=== PATIENT | female | born 1975 | race Caucasian/White ===

== ENCOUNTER 2023-11-23 10:36 | Emergency (ER) | payer OTHER, SELFPAY ==
[2023-11-23 10:37] VITALS: BP 183/103; PULSE 69; RESP 17; TEMP 36.8; O2SAT 98; BMI 42.5
--- NOTE | 2023-11-23 10:42 | XR_ITS ---
WS: [id number] Right shoulder, 3 views, 11/23/2023 Clinical Data: injury Comparison: None. Findings: No fractures or dislocations are seen. The AC joint is normal. The adjacent right clavicle, right sca pula and ribs are normal. The soft tissues are unremarkable. XR/XR shoulder RT min 2V* [id number] Impression: Negative right shoulder.
--- NOTE | 2023-11-23 11:06 | XR_ITS ---
WS: [id number] Portable AP upright chest, 11/23/2023 Clinical Data: pain Comparison: None. Findings: No nodules, masses or effusions are seen. The heart is normal. The pulmonary vascularity is not increased. No pneumonia or pneumothorax is seen. XR/XR chest 1V portable [id number] Impression: Negative chest.
--- NOTE | 2023-11-23 11:06 | ECG_ITS ---
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 Measurements Intervals [place] Rate: 64 P: 44 PA: 216 QRS: 11 QRSD: 100 T: 32 QT: 382 QTc: 397 Interpretive Statements SINUS RHYTHM WITH FIRST DEGREE AV BLOCK No previous ECG available for comparison Electronically Signed On 11-23-2023 16:35:16 CDT by Mil Siddiqui M.D. [id number]
--- NOTE | 2023-11-23 11:10 | ED_ITS ---
HPI - Extremity Problem General: Chief complaint: Extremity Injury, Upper Stated complaint: right shoulder pain Time Seen by Provider: 11/23/23 10:55 Source: patient Mode of arrival: ambulatory Limitations: no limitations History of Present Illness: 48-year-old female states that she has b een having right shoulder pain for the last 2 weeks. She states she feels like it is a muscle pain that is worse with movement and has some shooting pain down her arm. Denies any specific injury states she has seen her PCP she had done steroids and anti-inflammatories and has had no relief she rates her pain a 4 out of 10 currently she denies any neck pain denies any chest pain Associated symptoms: Deny chest pain, fever(s) or rash Related Data Previous Rx's Medication Instructions Recorded gabapentin 300 mg capsule 300 mg PO BID #30 caps 11/23/23 naproxen 500 mg tablet (Naprosyn) 500 mg PO BID PRN pain #20 tabs 11/23/23 Allergies Allergy/AdvReac Type Severity Reaction Status Date / Time amlodipine Allergy ALGY-Rash Verified 11/23/23 10:46 carbamazepine [From Tegretol] Allergy ALGY-Bliste Verified 11/23/23 10:46 r nifedipine Allergy ALGY-Rash Verified 11/23/23 10:46 Review of Systems Const: Denies: fever(s), chills, body aches or change in appetite ENMT: Denies: throat pain or dental pain Card: Denies: chest pain Resp: Denies: dyspnea GI: Denies: abdominal pain, nausea, vomiting or diarrhea Musc: Reports: extremity pain; Denies: neck pain or back pain Skin/Breast: Denies: rash Neuro: Denies: headache(s) Physical Exam Const: COMMON NORMALS: no acute distress, patient oriented x3 and healthy appearing HENMT: COMMON NORMALS: normocephalic and atraumatic HEAD & SCALP: normocephalic and atraumatic Neck/C-Spine: COMMON NORMALS: full ROM and supple Chest: COMMONS NORMALS: normal inspection of the chest Resp: COMMON NORMALS: normal respiratory effort, No retractions, No use of accessory muscles and clear to auscultation bilaterally AUSCULTATION: clear to auscultation bilaterally Cardio: COMMON NORMALS: regular rate, regular rhythm and No murmurs present (Cardio) RATE: regular rate RHYTHM: regular rhythm Extremity: COMMON NORMALS: normal to inspection and full ROM Neuro: COMMON NORMALS: patient oriented x3, moves all extremities and no focal motor deficits Psych: COMMON NORMALS: mental status grossly normal, Normal thought process present and cooperative THOUGHT PROCESS: Normal thought process present Skin: COMMON NORMALS: no rashes or lesions noted and no wounds GENERAL SKIN EXAM: no rashes or lesions noted Course Vital Signs: Vital signs: Vital Signs Temperature 98.2 F 11/23/23 10:37 Pulse Rate 67 11/23/23 11:26 Respiratory Rate 18 11/23/23 11:26 Blood Pressure 151/106 11/23/23 11:26 Pulse Oximetry 95 11/23/23 11:26 Oxygen Delivery Me thod Room Air 11/23/23 11:26 MDM - Extremity (Nontraumatic) Medical Decision Making Patient presents here with right shoulder pain exam here is benign x-rays are normal we will place her on gabapentin she is to follow-up with orthopedics return if worsening she understands agrees to plan Medical Records I reviewed the patient's medical records. Lab Data Radiology Impressions Shoulder X-Ray 11/23/23 10:42 Impression: Negative right shoulder. Chest X-Ray 11/23/23 11:06 Impression: Negative chest. All radiology interpretation(s) finalized by discharge EKG Data EKG 1: I personally reviewed and interpreted this EKG as follows: EKG interpretation date: 11/23/23 EKG interpretation time: 11:33 Interpretation: nsr hr [address] elevation qrs 100 qtc 392 Discharge Plan Discharge Patient Disposition: Home Clinical Impression: Pain in right shoulder Condition: Stable Prescriptions: New Naprosyn 500 mg tablet 500 mg PO BID PRN (Reason: pain) Qty: 20 0RF gabapentin 300 mg capsule 300 mg PO BID Qty: 30 0RF Discharge Orders: Discharge ED (Routine); Ordered 11/23/23 Ordered By: Mayte Hunter Referrals: Alie Madera MD [Physician] - 4-7 days Ned Mary DO [Primary Care Provider] - Discharge Diet: Advance as tolerated Discharge Activity: Resume usual activity Patient Instructions: Shoulder Pain (ED) Coding Level of Care Code ED Video Production Specialist for Chg Helen
[2023-11-23 11:26] VITALS: BP 151/106; PULSE 67; RESP 18; O2SAT 95
[2023-11-23] MEDS: dexamethasone 10 mg/mL INJ IM (11:27)
[2023-11-23] MEDS: ketorolac 60 mg/2 mL INJ IM (11:28)
[2023-11-23 12:15] VITALS: BP 147/94; PULSE 63; O2SAT 97
--- NOTE | 2023-11-24 10:00 | PC.SOCIAL ---
Orthopedics Referral Message sent to clinic for f/u appt at this time.
== END 2023-11-23 12:16 | disposition home or self-care (01) ==
PROVIDERS: Emergency Provider Emergency Medicine; PCP Family Medicine
DX: M25.511 Pain in right shoulder (principal)
CPT/HCPCS: 71045; 73030; 93005; 96372; 99284; J1100; J1885

== ENCOUNTER → 2023-11-29 15:26 | Outpatient (BNVA) | payer OTHER, SELFPAY | PROVIDERS: PCP Family Medicine; Visit Provider Nurse Practitioner | DX: M25.511 Pain in right shoulder (principal) | CPT/HCPCS: 73030 ==

== ENCOUNTER → 2023-12-05 15:54 | Outpatient (BNVA) | payer OTHER, SELFPAY | PROVIDERS: PCP Family Medicine; Visit Provider Orthopaedic Surgery | DX: M54.12 Radiculopathy, cervical region (principal) | CPT/HCPCS: 72050 ==

== ENCOUNTER 2024-04-10 12:47 | Emergency (ER) | payer BC, SELFPAY ==
[2024-04-10] VITALS (11 sets, daily range): BP systolic 144–223; BP diastolic 82–129; PULSE 73–96; RESP 16–18; TEMP 36.9; O2SAT 98–100; BMI 42.5
--- NOTE | 2024-04-10 13:07 | ECG_ITS ---
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 Measurements Intervals [place] Rate: 67 P: 43 VT: 242 QRS: 41 QRSD: 90 T: 42 QT: 385 QTc: 407 Interpretive Statements SINUS RHYTHM WITH FIRST DEGREE AV BLOCK Compared to ECG 11/23/2023 11:33:43 No significant changes Electronically Signed On 04-10-2024 17:56:19 REGISTERED NURSE FETAL by Maureen Cali M.D. [id number] [id number]
--- NOTE | 2024-04-10 14:01 | XR_ITS ---
WS: [id number] XR chest 1V portable [id number] REASON FOR EXAM: Dyspnea FINDINGS: Compensating for respiratory motion artifact the chest appears stable compared to 11/01/2023. The thoracic aorta is normal. The heart is at the upper limits of normal in size. No acute pulmonary parenchymal or pleural abnormality is identified. Mild degenerative spondylosis in the thoracic spine. XR/XR chest 1V portable [id number] IMPRESSION: Stable chest without acute abnormality.
[2024-04-10 14:33] LABS: Basophils % 0.3 %; Eosinophils # 0.1 10^3/uL (0.0-0.8); Eosinophils % 0.9 %; Hematocrit 37.4 % (36-47); Lymphocytes # 1.9 10^3/uL (0.8-4.8); Lymphocytes % 24.9 %; Mean Corpuscular HGB Conc 32.1 g/dL (30-55); Mean Corpuscular Hemoglobin 29.1 pg (27-33); Mean Corpuscular Volume 90.6 fl (85-98); Mean Platelet Volume 9.9 fL (7.4-10.4); Monocytes # 0.7 10^3/uL (0.2-0.9); Monocytes % 8.3 %; Neutrophils # 5.09 10^3/uL (1.8-7.7); Neutrophils % 65.2 %; Nucleated Red Blood Cells % 0 %; Platelet Count 271 10^3/cmm (157-399); Red Blood Count 4.13 10^6/uL (3.85-5.65); Red Cell Distribution Width 12.4 % (12.1-15.1)
[2024-04-10 14:49] LABS: Alanine Aminotransferase 14 U/L (0-33); Albumin Level 3.7 g/dL (3.5-5.2); Alkaline Phosphatase 64 U/L (35-105); Anion Gap 14.8 (5-19); Aspartate Amino Transferase 18 U/L (0-32); Blood Urea Nitrogen 10 mg/dL (6-20); Calcium 9.4 mg/dL (8.5-10.5); Carbon Dioxide 25 mmol/L (22-29); Chloride 102 mmol/L (98-107); Creatinine Clr Calc Pharmacy 90.4909; Globulin 3.5 g/dL (1.3-4.6); Glomerular Filtration Rate 66.8 mL/min (90-130); Glucose 106 mg/dL (65-115); Osmolality Calculated 283 mOsm/kg (285-295); Potassium 4.8 mmol/L (3.5-5.1); Sodium 137 mmol/L (136-145); Total Bilirubin 0.2 mg/dL (0.15-1.2); Total Protein 7.2 g/dL (6.6-8.7)
--- NOTE | 2024-04-10 14:56 | ED_ITS ---
Documented by User: Shilo Robertson, DO 04/11/24 05:40 HPI - SOB/Dyspnea 2 General: Chief Complaint: Shortness of Breath/Dyspnea Stated Complaint: SOB/wheezing Time Seen by Provider: 04/10/24 14:30 History of Present Illness: HPI Narrative: 41-year-old female presents emergency ro om complaining of shortness of breath for the last several days. She did have the swelling of the lower extremities. She also has a history of elevated blood pressure. She takes medicines regularly she has not had any change in doses or missed any doses recently she does vape but does not smoke. Patient has phentermine on her list but she has not taken for several months. She denies use of any myly-kjy-uuaarej decongestants or nasal sprays. Does not use large amounts of caffeine. Associated symptoms: Deny abdominal pain, chest pain or fever(s) Related Data Home Medications ?Medication ?Instructions ?Recorded ?Confirmed metoprolol succinate 100 mg 100 mg PO DAILY 11/29/23 0 04/10/24 tablet,extended release 24 hr tizanidine 4 mg capsule 4 mg PO TID PRN muscle spasm s 11/29/23 04/10/24 losartan 100 mg tablet 100 mg PO DAILY 12/05/2302/20 gabapentin 100 mg capsule 200 mg PO BEDTIME 04/10/24 0 04/10/24 hydrocodone 7.5 mg-acetaminophen 1 tab PO QID PRN Pain 04/10/24 04/10/24 325 mg tablet Previous Rx's ?Medication ?Instructions ?Recorded hydralazine 25 mg tablet 25 mg PO TID #90 tabs hydrochlorothiazide 25 mg tablet 25 mg PO DAILY #30 ta bs 04/10/24 levalbuterol tartrate 45 2 inh inhalation Q4H #15 gra ms 04/10/24 mcg/actuation aerosol inhaler (Xopenex HFA) Allergies Allergy/AdvReac Type Severity Reaction Status Date / Time amlodipine Allergy ALGY-Rash Verified 04/10/24 20:29 carbamazepine (From Tegretol) Allergy ALGY-Bliste Verified 04/10/24 20:29 r nifedipine Allergy ALGY-Rash Verified 04/10/24 20:29 Review of Systems 2 Const: Denies: fever(s) or chills Eyes: Reports: blurry vision and photophobia Card: Denies: chest pain Resp: Denies: dyspnea GI: Denies: abdominal pain : Denies: dysuria, urinary frequency or urinary urgency Musc: Denies: neck pain or back pain Skin/Breast: Denies: rash Neuro: Reports: headache(s) PFSH ED 2 PFSH: Medical History Right cervical radiculopathy Social History Smoking and tobacco/nicotine status: former use of tobacco/nicotine Physical Exam 2 Const: GENERAL APPEARANCE: cooperative ORIENTATION/CONSCIOUSNESS: Yes awake, Yes oriented to person, Yes oriented to place and Yes oriented to time HENMT: COMMON NORMALS: normocephalic, atraumatic and hearing grossly normal bilaterally HEAD & SCALP: normocephalic and atraumatic Resp: COMMON NORMALS: normal respiratory effort, No retractions, No use of accessory muscles and clear to auscultation bilaterally AUSCULTATION: clear to auscultation bilaterally Cardio: COMMON NORMALS: regular rate, regular rhythm and No murmurs present (Cardio) RATE: regular rate RHYTHM: regular rhythm GI: COMMON NORMALS: Soft to palpation and No hepatosplenomegaly present A USCULTATION: Yes normoactive bowel sounds PALPATION: Yes Soft to palpation, No Tenderness to palpation present (GI), No Guarding due to palpation present (GI) and Yes No hepatosplenomegaly present Extremity: COMMON NORMALS: normal to inspection, capillary refill normal, no clubbing, cyanosis or edema, no calf tenderness and no pedal edema Neuro: SENSORIUM/ORIENTATION: Yes oriented to person, Yes oriented to place and Yes oriented to time Skin: COMMON NORMALS: no rashes or lesions noted GENERAL SKIN EXAM: no rashes or lesions noted Course 2 Vital Signs: Vital signs: Vital Signs Temperature 98.4 F 04/10/24 12:54 Pulse Rate 81 04/10/24 19:02 Respiratory Rate 16 04/10/24 19:02 Blood Pressure 157/82 04/10/24 19:02 Pulse Oximetry 100 04/10/24 19:02 Oxygen Delivery Me thod Room Air 04/10/24 16:34 MDM - SOB/Dyspnea Medical Decision Making Patient presents complaining of shortness of breath chest x-ray was normal subsequently some vision changes elevated blood pressure CT of her head was normal. CTA of the chest that not show any PEs there are very small pleural effusions. Discussed this with her and encouraged her to follow-up with her primary care doctor regarding this. She was given multiple blood pressure medications her blood pressure was rather labile eventually we are able to get her blood pressure controlled we are about to discharge her and it went up again she was redosed. Care turned over to Dr. Stanton if blood pressure does not improve she will need to be admitted that she could go home with the hydralazine hydrochlorothiazide along with her metoprolol. Additionally she had good relief of her shortness of breath with Xopenex nebulizer she was given a Xopenex inhaler to use as needed. Care signed out to Dr. Stanton at change of shift. See final notes for diagnosis and disposition. Patient care transitioned me at shift change. Awaiting blood pressure improvement. It did improve patient was discharged home. Medical Records I reviewed the patient's medical records. Lab Data I reviewed the patient's lab results. 04/10/24 14:13 04/10/24 14:13 Labs/Radiology: Radiology Impressions Chest X-Ray 04/10/24 14:01 IMPRESSION: Stable chest without acute abnormality. Head CT 04/10/24 15:06 IMPRESSION: No acute intracranial abnormality. Chest CTA 04/10/24 17:11 IMPRESSION: Small volume bilateral pleural effusions. Laboratory Results WBC 7.80 10^3/uL (3.29-11.43) 04/10/24 14:13 RBC 4.13 10^6/uL (3.85-5.65) 04/10/24 14:13 Hgb 12.00 g/dL (11.27-16.99) 04/10/24 14:13 Hct 37.4 % (36-47) 04/10/24 14:13 MCV 90.6 fl (85-98) 04/10/24 14:13 MCH 29.1 pg (27-33) 04/10/24 14:13 MCHC 32.1 g/dL (30-55) 04/10/24 14:13 RDW 12.4 % (12.1-15.1) 04/10/24 14:13 Plt Count 271 10^3/cmm (157-399) 04/10/24 14:13 MPV 9.9 fL (7.4-10.4) 04/10/24 14:13 Neut % (Auto) 65.2 % 04/10/24 14:13 Lymph % (Auto) 24.9 % 04/10/24 14:13 Baxter % (Auto) 8.3 % 04/10/24 14:13 Eos % (Auto) 0.9 % 04/10/24 14:13 Baso % (Auto) 0.3 % 04/10/24 14:13 Neut # (Auto) 5.09 10^3/uL (1.8-7.7) 04/10/24 14:13 Lymph # (Auto) 1.9 10^3/uL (0.8-4.8) 04/10/24 14:13 [place] # (Auto) 0.7 10^3/uL (0.2-0.9) 04/10/24 14:13 Eos # (Auto) 0.1 10^3/uL (0.0-0.8) 04/10/24 14:13 Baso # (Auto) 0.0 10^3/uL (0.0-0.1) 04/10/24 14:13 Nucleated RBC % (auto) 0 % 04/10/24 14:13 Nucleated RBCs # 0.0 /100WBC 04/10/24 14:13 D-Dimer 0.98 ug/mLFEU (0-0.59) H 04/10/24 14:13 Sodium 137 mmol/L (136-145) 04/10/24 14:13 Potassium 4.8 mmol/L (3.5-5.1) 04/10/24 14:13 Chloride 102 mmol/L (98-107) 04/10/24 14:13 Carbon Dioxide 25 mmol/L (22-29) 04/10/24 14:13 Anion Gap 14.8 (5-19) 04/10/24 14:13 BUN 10 mg/dL (6-20) 04/10/24 14:13 Creatinine 0.9 mg/dL (0.5-0.9) 04/10/24 14:13 GFR Calculation 66.8 mL/min (90-130) L 04/10/24 14:13 Glucose 106 mg/dL (65-115) 04/10/24 14:13 Calculated Osmolality 283 mOsm/kg (285-295) L 04/10/24 14:13 Calcium 9.4 mg/dL (8.5-10.5) 04/10/24 14:13 Total Bilirubin 0.2 mg/dL (0.15-1.2) 04/10/24 14:13 AST 18 U/L (0-32) 04/10/24 14:13 ALT 14 U/L (0-33) 04/10/24 14:13 Alkaline Phosphatase 64 U/L (35-105) 04/10/24 14:13 Total Protein 7.2 g/dL (6.6-8.7) 04/10/24 14:13 Albumin 3.7 g/dL (3.5-5.2) 04/10/24 14:13 Globulin 3.5 g/dL (1.3-4.6) 04/10/24 14:13 Coronavirus (PCR) Negative (Negative) 04/10/24 14:45 Influenza A (PCR) Negative (Negative) 04/10/24 14:45 Influenza Type B (PCR) Negative (Negative) 04/10/24 14:45 RSV (PCR) Negative (Negative) 04/10/24 14:45 Discharge Plan Discharge Patient Disposition: Home Clinical Impression: Hypertension Condition: Stable Prescriptions: New hydrochlorothiazide 25 mg tablet 25 mg PO DAILY Qty: 30 0RF hydralazine 25 mg tablet 25 mg PO TID Qty: 90 0RF levalbuterol tartrate [Xopenex HFA] 45 mcg/actuation HFA aerosol inhaler 2 inh inhalation Q4H Qty: 15 0RF No Action metoprolol succinate 100 mg tablet extended release 24 hr 100 mg PO DAILY tizanidine 4 mg capsule 4 mg PO TID PRN (Reason: muscle spasms) losartan 100 mg tablet 100 mg PO DAILY hydrocodone-acetaminophen 7.5-325 mg tablet 1 tab PO QID PRN (Reason: Pain) gabapentin 100 mg capsule 200 mg PO BEDTIME Discharge Orders: Discharge ED (Routine); Ordered 04/10/24 Ordered By: Shilo Robertson Referrals: Ned Mary DO [Primary Care Provider] - Discharge Diet: Usual diet Discharge Activity: Resume usual activity Patient Instructions: Opioid Safety, Pain Management Activity Restrictions/Additional Instructions: Thank you for choosing [facility] for your healthcare needs today. It is very important that you follow up as instructed or that you return to the Emergency Department should you have concerns or if your condition changes or worsens in any way. You are seen in the emergency room for shortness of breath and wheezing. Your chest x-ray was normal there is no signs of any pneumonia. You do have a small pleural effusions that should be followed up with your primary care doctor. Flu COVID and RSV were negative. We also checked you for pulmonary embolism which is also negative. Recommend he stop losartan and switch to hydrochlorothiazide and hydralazine continue metoprolol. Follow-up with your primary care doctor within the next week to reevaluate your blood pressure and for further follow-up on the pleural effusions. Print Language: Lithuanian Coding Level of Care Code ED Velvet Steamer for Chg Fwd Documented by User: Taylor Stanton MD 04/10/24 19:38 HPI - SOB/Dyspnea 2 General: Chief Complaint: Shortness of Breath/Dyspnea Stated Complaint: SOB/wheezing Time Seen by Provider: 04/10/24 14:30 Related Data Home Medications ?Medication ?Instructions ?Recorded ?Confirmed metoprolol succinate 100 mg 100 mg PO DAILY 11/29/23 0 04/10/24 tablet,extended release 24 hr tizanidine 4 mg capsule 4 mg PO TID PRN muscle spasm s 11/29/23 04/10/24 losartan 100 mg tablet 100 mg PO DAILY 12/05/2302/20 gabapentin 100 mg capsule 200 mg PO BEDTIME 04/10/24 0 04/10/24 hydrocodone 7.5 mg-acetaminophen 1 tab PO QID PRN Pain 04/10/24 04/10/24 325 mg tablet Previous Rx's ?Medication ?Instructions ?Recorded hydralazine 25 mg tablet 25 mg PO TID #90 tabs hydrochlorothiazide 25 mg tablet 25 mg PO DAILY #30 ta bs 04/10/24 levalbuterol tartrate 45 2 inh inhalation Q4H #15 gra ms 04/10/24 mcg/actuation aerosol inhaler (Xopenex HFA) Allergies Allergy/AdvReac Type Severity Reaction Status Date / Time amlodipine Allergy ALGY-Rash Verified 04/10/24 20:29 carbamazepine (From Tegretol) Allergy ALGY-Bliste Verified 04/10/24 20:29 r nifedipine Allergy ALGY-Rash Verified 04/10/24 20:29 PFSH ED 2 PFSH: Medical History Right cervical radiculopathy Social History Smoking and tobacco/nicotine status: former use of tobacco/nicotine Course 2 Vital Signs: Vital signs: Vital Signs Temperature 98.4 F 04/10/24 12:54 Pulse Rate 81 04/10/24 19:02 Respiratory Rate 16 04/10/24 19:02 Blood Pressure 157/82 04/10/24 19:02 Pulse Oximetry 100 04/10/24 19:02 Oxygen Delivery Me thod Room Air 04/10/24 16:34 MDM - SOB/Dyspnea Medical Decision Making Patient care transitioned me at shift change. Awaiting blood pressure improvement. It did improve patient was discharged home. Lab Data 04/10/24 14:13 04/10/24 14:13 Labs/Radiology: Radiology Impressions Chest X-Ray 04/10/24 14:01 IMPRESSION: Stable chest without acute abnormality. Head CT 04/10/24 15:06 IMPRESSION: No acute intracranial abnormality. Chest CTA 04/10/24 17:11 IMPRESSION: Small volume bilateral pleural effusions. Laboratory Results WBC 7.80 10^3/uL (3.29-11.43) 04/10/24 14:13 RBC 4.13 10^6/uL (3.85-5.65) 04/10/24 14:13 Hgb 12.00 g/dL (11.27-16.99) 04/10/24 14:13 Hct 37.4 % (36-47) 04/10/24 14:13 MCV 90.6 fl (85-98) 04/10/24 14:13 MCH 29.1 pg (27-33) 04/10/24 14:13 MCHC 32.1 g/dL (30-55) 04/10/24 14:13 RDW 12.4 % (12.1-15.1) 04/10/24 14:13 Plt Count 271 10^3/cmm (157-399) 04/10/24 14:13 MPV 9.9 fL (7.4-10.4) 04/10/24 14:13 Neut % (Auto) 65.2 % 04/10/24 14:13 Lymph % (Auto) 24.9 % 04/10/24 14:13 Baxter % (Auto) 8.3 % 04/10/24 14:13 Eos % (Auto) 0.9 % 04/10/24 14:13 Baso % (Auto) 0.3 % 04/10/24 14:13 Neut # (Auto) 5.09 10^3/uL (1.8-7.7) 04/10/24 14:13 Lymph # (Auto) 1.9 10^3/uL (0.8-4.8) 04/10/24 14:13 [place] # (Auto) 0.7 10^3/uL (0.2-0.9) 04/10/24 14:13 Eos # (Auto) 0.1 10^3/uL (0.0-0.8) 04/10/24 14:13 Baso # (Auto) 0.0 10^3/uL (0.0-0.1) 04/10/24 14:13 Nucleated RBC % (auto) 0 % 04/10/24 14:13 Nucleated RBCs # 0.0 /100WBC 04/10/24 14:13 D-Dimer 0.98 ug/mLFEU (0-0.59) H 04/10/24 14:13 Sodium 137 mmol/L (136-145) 04/10/24 14:13 Potassium 4.8 mmol/L (3.5-5.1) 04/10/24 14:13 Chloride 102 mmol/L (98-107) 04/10/24 14:13 Carbon Dioxide 25 mmol/L (22-29) 04/10/24 14:13 Anion Gap 14.8 (5-19) 04/10/24 14:13 BUN 10 mg/dL (6-20) 04/10/24 14:13 Creatinine 0.9 mg/dL (0.5-0.9) 04/10/24 14:13 GFR Calculation 66.8 mL/min (90-130) L 04/10/24 14:13 Glucose 106 mg/dL (65-115) 04/10/24 14:13 Calculated Osmolality 283 mOsm/kg (285-295) L 04/10/24 14:13 Calcium 9.4 mg/dL (8.5-10.5) 04/10/24 14:13 Total Bilirubin 0.2 mg/dL (0.15-1.2) 04/10/24 14:13 AST 18 U/L (0-32) 04/10/24 14:13 ALT 14 U/L (0-33) 04/10/24 14:13 Alkaline Phosphatase 64 U/L (35-105) 04/10/24 14:13 Total Protein 7.2 g/dL (6.6-8.7) 04/10/24 14:13 Albumin 3.7 g/dL (3.5-5.2) 04/10/24 14:13 Globulin 3.5 g/dL (1.3-4.6) 04/10/24 14:13 Coronavirus (PCR) Negative (Negative) 04/10/24 14:45 Influenza A (PCR) Negative (Negative) 04/10/24 14:45 Influenza Type B (PCR) Negative (Negative) 04/10/24 14:45 RSV (PCR) Negative (Negative) 04/10/24 14:45 All radiology interpretation(s) finalized by discharge Discharge Plan Discharge Patient Disposition: Home Clinical Impression: Hypertension Condition: Stable Prescriptions: New hydrochlorothiazide 25 mg tablet 25 mg PO DAILY Qty: 30 0RF hydralazine 25 mg tablet 25 mg PO TID Qty: 90 0RF levalbuterol tartrate [Xopenex HFA] 45 mcg/actuation HFA aerosol inhaler 2 inh inhalation Q4H Qty: 15 0RF No Action metoprolol succinate 100 mg tablet extended release 24 hr 100 mg PO DAILY tizanidine 4 mg capsule 4 mg PO TID PRN (Reason: muscle spasms) losartan 100 mg tablet 100 mg PO DAILY hydrocodone-acetaminophen 7.5-325 mg tablet 1 tab PO QID PRN (Reason: Pain) gabapentin 100 mg capsule 200 mg PO BEDTIME Discharge Orders: Discharge ED (Routine); Ordered 04/10/24 Ordered By: Shilo Robertson Referrals: Ned Mary DO [Primary Care Provider] - Discharge Diet: Usual diet Discharge Activity: Resume usual activity Patient Instructions: Opioid Safety, Pain Management Activity Restrictions/Additional Instructions: Thank you for choosing [facility] for your healthcare needs today. It is very important that you follow up as instructed or that you return to the Emergency Department should you have concerns or if your condition changes or worsens in any way. You are seen in the emergency room for shortness of breath and wheezing. Your chest x-ray was normal there is no signs of any pneumonia. You do have a small pleural effusions that should be followed up with your primary care doctor. Flu COVID and RSV were negative. We also checked you for pulmonary embolism which is also negative. Recommend he stop losartan and switch to hydrochlorothiazide and hydralazine continue metoprolol. Follow-up with your primary care doctor within the next week to reevaluate your blood pressure and for further follow-up on the pleural effusions. Print Language: Lithuanian Coding Level of Care Code ED Velvet Steamer for Jesika Cervantes
--- NOTE | 2024-04-10 15:06 | CTR_ITS ---
PROCEDURE INFORMATION: Exam: CT Head Without Contrast Exam date and time: 04/10/2024 3:47 PM Age: 49 years old Clinical indication: Other: Accelerated hypertension TECHNIQUE: Imaging protocol: Computed tomography of the head without contrast. Radiation optimization: All CT scans at this facility use at least one of these dose optimization techniques: automated exposure control; mA and/or kV adjustment per patient size (includes targeted exams where dose is matched to clinical indication); or iterative reconstruction. COMPARISON: CR XR cervical spine 4-5V [id number] 12/05/2023 4:15 PM RADIATION DOSE METRICS: Total DLP (mGy-cm): 996.28 FINDINGS: Brain: Normal. No hemorrhage. Unremarkable white matter. No mass effect. Cerebral ventricles: No ventriculomegaly. Paranasal sinuses: Visualized sinuses are unremarkable. No fluid levels. Mastoid air cells: Visualized mastoid air cells are well aerated. Bones: Unremarkable. No acute fracture. Soft tissues: Unremarkable. CT/CT head wo con* [id number] IMPRESSION: No acute intracranial abnormality.
[2024-04-10] MEDS: labetalol 5 mg/mL SDV 20mL 10 MG IVP (15:10)
[2024-04-10] MEDS: hyDRALAzine 20 mg/mL INJ 1 mL IVP (15:10)
[2024-04-10 15:40] LABS: Covid PCR NEGATIVE (Negative); Influenza A NEGATIVE (Negative); Influenza B NEGATIVE (Negative); Respiratory Syncytial Virus Ce NEGATIVE (Negative)
[2024-04-10] MEDS: levalbuterol 0.63 mg/3 mL Neb INHALATION (15:58)
--- NOTE | 2024-04-10 15:59 | ECG_ITS ---
[email or web address] Date: [facility]24-[facility]10 Pat Name: Erendira Cheney Department: Room: Gender: Female Masonry Inspector: : 1975 Requested By: Shilo Musa Order Number: [id number] Deep MD: Maureen Cali M.D. Measurements Intervals [place] Rate: 87 P: 68 [place]: 226 QRS: 58 QRSD: 99 T: 51 QT: 366 QTc: 440 Interpretive Statements SINUS RHYTHM WITH FIRST DEGREE AV BLOCK Compared to ECG 04/10/2024 13:07:52 No significant changes Electronically Signed On 04-10-2024 17:56:15 ANIMAL CARE TECHNICIAN by Maureen Cali M.D. [email or web address]
[2024-04-10] MEDS: enalaprilat 2.5 mg/2 mL SDV 1.25 MG IVP (16:34)
[2024-04-10 16:57] LABS: D Dimer 0.98 ug/mLFEU (0-0.59)
--- NOTE | 2024-04-10 17:11 | CTR_ITS ---
PROCEDURE INFORMATION: Exam: CTA Chest With Contrast Exam date and time: 04/10/2024 5:25 PM Age: 49 years old Clinical indication: Dyspnea; Additional info: Elevated d-dimer/dyspnea TECHNIQUE: Imaging protocol: Computed tomographic angiography of the chest with contrast. Exam focused on the arteries. 3D rendering (Not supervised by radiologist): MIP and/or 3D reconstructed images were created by the technologist. Radiation optimization: All CT scans at this facility use at least one of these dose optimization techniques: automated exposure control; mA and/or kV adjustment per patient size (includes targeted exams where dose is matched to clinical indication); or iterative reconstruction. Contrast material: OMNIPAQUE 350; Contrast volume: 100 ml; Contrast route: INTRAVENOUS (IV); COMPARISON: CR XR chest 1V portable [id number] 04/10/2024 2:20 PM RADIATION DOSE METRICS: Total DLP (mGy-cm): 461.5 FINDINGS: Pulmonary arteries: Normal. No pulmonary emboli. Aorta: Unremarkable. No aortic aneurysm. No aortic dissection. Lungs: Unremarkable. No consolidation. No masses. Pleural spaces: Small volume bilateral pleural effusions. No pneumothorax. Heart: Unremarkable. No cardiomegaly. No pericardial effusion. Lymph nodes: Unremarkable. No enlarged lymph nodes. Bones/joints: Unremarkable. No acute fracture. Soft tissues: Unremarkable. CT/CT angio chest PE protcl [id number] IMPRESSION: Small volume bilateral pleural effusions.
[2024-04-10] MEDS: iohexol 350 mg/mL 500 mL Btl (per mL) IV (17:27)
[2024-04-10] MEDS: hyDRALAzine 20 mg/mL INJ 1 mL 10 MG IVP (18:51)
[2024-04-10] MEDS: HYDROcodone-acetaminophen 10-325 mg Tablet 1 TAB PO (19:01)
== END 2024-04-10 19:02 | disposition home or self-care (01) ==
PROVIDERS: Emergency Medicine; Family Medicine; Emergency Provider Emergency Medicine; PCP Family Medicine
DX: I10 Essential (primary) hypertension (principal); Z11.52 Encounter for screening for COVID-19; Z87.891 Personal history of nicotine dependence
CPT/HCPCS: 36415; 70450; 71045; 71275; 80053; 85025; 85378; 87637; 93005; 94640; 96374; 96375; 96376; 99285; J0360; J3490; J7614

== ENCOUNTER 2024-04-10 19:45 | Emergency (ER) | payer BC, SELFPAY ==
[2024-04-10 20:27] VITALS: BP 162/88; PULSE 82; RESP 18; TEMP 37; O2SAT 97; BMI 42.5
== END 2024-04-11 00:44 | disposition left against medical advice (07) ==
PROVIDERS: Emergency Provider Family Medicine; PCP Family Medicine
DX: Z53.21 Procedure and treatment not carried out due to patient leaving prior to being seen by health care provider (principal)